=== PATIENT | female | born 1955 | race Caucasian/White ===

== ENCOUNTER 2022-05-19 06:06 | Day surgery (SDC) | payer MEDICARE ==
[2022-05-18 16:00] VITALS: BP 215/70
[2022-05-18 16:04] LABS: BASOPHILS % (AUTO) 1.6 % (0.0-5.0); EOSINOPHILS % (AUTO) 4.8 % (0.0-8.0); HEMATOCRIT 42.9 % (36-48); LYMPHOCYTES % (AUTO) 23.9 % (21.0-51.0); MEAN CORPUSCULAR HGB CONC 31.7 g/dL (32.0-36.0); MEAN CORPUSCULAR VOLUME 97.7 fL (79-99); NEUTROPHILS % (AUTO) 60.4 % (40.0-77.0); PLATELET COUNT (AUTO) 404 K/uL (130-400); RED BLOOD CELL COUNT(AUTO) 4.39 MIL/uL (4.00-5.50); RED CELL DISTRIBUTION WIDTH 14.1 % (11.0-15.5); WHITE BLOOD COUNT (AUTO) 9.6 K/uL (4.8-10.8)
[2022-05-18 16:18] LABS: INR 0.96 (0.85-1.15); PROTHROMBIN TIME 10.5 SEC (9.6-11.6)
[2022-05-18 16:19] LABS: PARTIAL THROMBOPLASTIN TIME 27.7 SEC (26.3-35.5)
[2022-05-18 16:31] LABS: APPEARANCE,URINE CLEAR (CLEAR); BILIRUBIN,URINE NEGATIVE (NEGATIVE); COLOR,URINE YELLOW (YELLOW); GLUCOSE, URINE (UA) NEGATIVE (NEGATIVE); KETONES,URINE NEGATIVE (NEGATIVE); LEUKOCYTE ESTERASE ,URINE 75 Leu/uL (NEGATIVE); NITRATE,URINE NEGATIVE (NEGATIVE); OCCULT BLOOD,URINE NEGATIVE (NEGATIVE); PROTEIN,URINE NEGATIVE (NEGATIVE); UROBILINOGEN,URINE 0.2 mg/dL (0.2-1.0)
[2022-05-18 16:44] LABS: BACTERIA,URINE RARE /HPF (None Seen); SQUAMOUS EPITHELIAL CELL,UR RARE /HPF (0-2)
[2022-05-18 16:47] LABS: CREATININE 0.8 mg/dL (0.5-1.5); POTASSIUM 4.5 mmol/L (3.5-5.1)
[~2022-05-19] VITALS: Ht 162.6 cm; Wt 65.8 kg
[2022-05-19] VITALS (18 sets, daily range): BP systolic 129–156; BP diastolic 41–71
[~2022-05-19 06:06] MED LIST: ALPR0.255 PO; AMLO-257 PO; CHOL100046 PO; CYAN100084 PO; FLUT16H NS; FOLI1 PO; FURO40TA7 PO; LEVO50CA4 PO; POTA10CA44 PO; PROP10TA72 PO
[2022-05-19] MEDS ORDERED: LACTATED RINGERS 1000ML 1,000 ML IV ONE (06:11)
[2022-05-19] MEDS ORDERED: PROPOFOL 10 MG/ML 20ML VIAL IV ONE (10:26)
[2022-05-19] MEDS ORDERED: FENTANYL CITRATE PF 50 MCG/1 ML 2ML VIAL ONE (10:26)
[2022-05-19] MEDS ORDERED: MIDAZOLAM HCL 1 MG/ML 2ML VIAL ONE (10:26)
[2022-05-19] MEDS ORDERED: ROCURONIUM 10MG/1ML SYR 10 MG/ML ML ONE (10:27)
[2022-05-19] MEDS ORDERED: ONDANSETRON 4MG INJ ONE (11:11)
[2022-05-19] MEDS ORDERED: MEPERIDINE-PF 25 MG/ML SYG ONE (11:11)
== END 2022-05-19 13:00 | disposition home or self-care (01) ==
LOC: DAH 06:06
PROVIDERS: ATTEND Obstetrics & Gynecology
DX: N95.0 Postmenopausal bleeding (principal); N85.4 Malposition of uterus; I10 Essential (primary) hypertension; E03.9 Hypothyroidism, unspecified; D64.9 Anemia, unspecified; M06.9 Rheumatoid arthritis, unspecified; G43.909 Migraine, unspecified, not intractable, without status migrainosus; D50.9 Iron deficiency anemia, unspecified; Z98.890 Other specified postprocedural states; Z90.49 Acquired absence of other specified parts of digestive tract; Z88.2 Allergy status to sulfonamides; Z88.8 Allergy status to other drugs, medicaments and biological substances; Z90.89 Acquired absence of other organs; Z79.899 Other long term (current) drug therapy
CPT/HCPCS: 86900; 87426; 80048; 85025; 85610; 85730; 86850; 86901; 87088; 81001; 36415; 93005; 58120; A6260; A4663; J7120; J3010; J2250; J2704; J2405; J2175; A4315; A4215; A4223; A4222; A4221; A4335 ×2

== ENCOUNTER 2022-07-20 08:34 | Emergency (ER) | payer MEDICARE ==
[~2022-07-20] VITALS: Ht 160 cm; Wt 65.8 kg
[~2022-07-20 08:34] MED LIST changes: -POTA10CA44 PO; +POTA10CA45 PO
[2022-07-20] MEDS ORDERED: MORPHINE 4 MG SYG IVP ONE ×2 (10:00→13:00)
[2022-07-20 10:32] LABS: BASOPHILS % (AUTO) 0.6 % (0.0-5.0); EOSINOPHILS % (AUTO) 2.1 % (0.0-8.0); HEMATOCRIT 36.5 % (36-48); LYMPHOCYTES % (AUTO) 8.6 % (21.0-51.0); MEAN CORPUSCULAR HGB CONC 32.3 g/dL (32.0-36.0); MEAN CORPUSCULAR VOLUME 95.8 fL (79-99); MONOCYTES % (AUTO) 8.6 % (3.0-13.0); NEUTROPHILS % (AUTO) 79.3 % (40.0-77.0); PLATELET COUNT (AUTO) 475 K/uL (130-400); RED BLOOD CELL COUNT(AUTO) 3.81 MIL/uL (4.00-5.50); RED CELL DISTRIBUTION WIDTH 12.9 % (11.0-15.5); WHITE BLOOD COUNT (AUTO) 17.3 K/uL (4.8-10.8)
[2022-07-20 10:46] LABS: CREATININE 0.8 mg/dL (0.5-1.5)
[2022-07-20 10:48] LABS: POTASSIUM 2.9 mmol/L (3.5-5.1)
[2022-07-20] MEDS ORDERED: POTASSIUM BICARB/CIT AC 25 MEQ TABLET.EFF PO ONE (12:00)
[2022-07-20] MEDS ORDERED: CLINDAMYCIN IVPB 900MG/50ML 50 ML IV SCH (12:00)
[2022-07-20] MEDS ORDERED: CLIN-141 PO (12:23)
[2022-07-20 13:44] VITALS: BP 144/85
== END 2022-07-20 13:30 | disposition home or self-care (01) ==
LOC: EDH 08:34
DX: L03.311 Cellulitis of abdominal wall (principal); T81.49XA Infection following a procedure, other surgical site, initial encounter; I10 Essential (primary) hypertension; E03.9 Hypothyroidism, unspecified; E87.6 Hypokalemia; Z88.1 Allergy status to other antibiotic agents; Z88.2 Allergy status to sulfonamides; Z90.49 Acquired absence of other specified parts of digestive tract; Z90.710 Acquired absence of both cervix and uterus
CPT/HCPCS: 99284; 74176; 96365; 96375; 80053; 85025; 87040 ×2; 83605; 36415; 96376; J2270 ×2; J3490